=== PATIENT | female | born 1990 | race Caucasian/White ===

== ENCOUNTER 2017-06-08 16:59 | Inpatient (IN) | payer SELFPAY ==
[2017-06-08] MEDS ORDERED: CARBOPROST 250 MCG/ML SOL IM PRN (17:21)
[2017-06-08] MEDS ORDERED: MEPIVACAINE HCL 1% MPF 30 ML SOL INFIL PRN (17:21)
[2017-06-08] MEDS ORDERED: OXYTOCIN 10000 MU/ML SOL IM PRN (17:21)
[2017-06-08] MEDS ORDERED: METHYLERGONOVINE MALEATE 0.2 MG/ML SOL IM PRN (17:21)
[2017-06-08] MEDS ORDERED: SODIUM CHLORIDE 0.9% FLUSH 10 ML SOL IV PRN (17:21)
[2017-06-08] MEDS ORDERED: FENTANYL 100MCG/2ML SOL IV PRN (17:21)
[2017-06-08] MEDS ORDERED: LACTATED RINGERS 1,000 ML IV PRN (17:21)
[2017-06-08] MEDS ORDERED: SODIUM CHLORIDE 0.9% FLUSH 10 ML SOL IV SCH (17:30)
[2017-06-08] MEDS ORDERED: SODIUM CHLORIDE 0.9% 500 ML 500 ML IV ONE (17:47)
[2017-06-08] MEDS ORDERED: MEPIVACAINE HCL 1% MPF 30 ML SOL ONE (17:55)
[2017-06-08] MEDS ORDERED: OXYTOCIN 10000 MU/ML SOL ONE (17:55)
[2017-06-08] MEDS ORDERED: FLEET ENEMA PR PRN (20:30)
[2017-06-08] MEDS ORDERED: BISACODYL 10 MG SUP PR PRN (20:30)
[2017-06-08] MEDS ORDERED: BENZOCAINE/MENTHOL 1 SPR TOP PRN (20:30)
[2017-06-08] MEDS ORDERED: METHYLERGONOVINE MALEATE 0.2 MG TAB PO PRN (20:30)
[2017-06-08] MEDS ORDERED: WITCH HAZEL 1 EA PAD TOP PRN (20:30)
[2017-06-08] MEDS ORDERED: TEMAZEPAM 15MG 15 MG CAP PO PRN (20:30)
[2017-06-08] MEDS ORDERED: OXYCODONE HYDROCHLORIDE 5 MG TAB PO PRN (20:31)
[2017-06-08] MEDS ORDERED: IBUPROFEN 600 MG TAB ONE (21:11)
[2017-06-08] MEDS: IBUPROFEN 600 MG TAB PO PRN (21:12)
[2017-06-08] MEDS ORDERED: DOCUSATE SODIUM 100 MG SGL ONE (23:15)
[2017-06-08] MEDS: DOCUSATE SODIUM 100 MG SGL PO SCH (23:16)
[2017-06-09] MEDS: IBUPROFEN 600 MG TAB PO PRN ×2 (05:20→14:35)
[2017-06-09] MEDS: DOCUSATE SODIUM 100 MG SGL PO SCH ×2 (08:58→20:39)
[2017-06-09] MEDS: MULTIVITAMIN2 1 EA TAB PO SCH (08:58)
[2017-06-09] MEDS: FOLIC ACID 1 MG TAB PO SCH (08:58)
[2017-06-10] MEDS: IBUPROFEN 600 MG TAB PO PRN (03:16)
[2017-06-10] MEDS: FOLIC ACID 1 MG TAB PO SCH (08:42)
[2017-06-10] MEDS: DOCUSATE SODIUM 100 MG SGL PO SCH (08:42)
[2017-06-10] MEDS: MULTIVITAMIN2 1 EA TAB PO SCH (08:42)
[2017-06-10 10:03] VITALS: BP 114/72; PULSE 84; RESP 18; TEMP 97.4; O2SAT 98
== END 2017-06-10 11:55 | disposition home or self-care (01) | DRG 775 ==
LOC: OB 16:59 → OBSVTOIN 16:59
PROVIDERS: ADMIT Family Medicine; ATTEND Family Medicine
PROC: 10E0XZZ Delivery of Products of Conception, External Approach (ICD-10-PCS; principal; 2017-06-08)
PROC: 10907ZC Drainage of Amniotic Fluid, Therapeutic from Products of Conception, Via Natural or Artificial Opening (ICD-10-PCS; 2017-06-08)
DX: O80 Encounter for full-term uncomplicated delivery (principal); Z37.0 Single live birth; Z3A.39 39 weeks gestation of pregnancy
CPT/HCPCS: 36415; 85018; J0670; J2590